=== PATIENT | female | born 1980 | race Caucasian/White ===

== ENCOUNTER 2016-06-30 08:29 | Day surgery (SDC) | payer BC ==
[~2016-06-30] VITALS: Ht 157.5 cm; Wt 74.8 kg
[~2016-06-30 08:29] MED LIST: LAMICTAL100 MG PO; PROBIOTIC1 EAC2 PO; RESCUE INHALER; WELLBUTRIN XL300 MG PO
[2016-06-30] MEDS ORDERED: VENTOLIN HFA18 GM IH (08:56)
[2016-06-30 08:59] VITALS: BP 107/63
[2016-06-30] MEDS ORDERED: NORCO 5/3251 TABLET PO (10:33)
[2016-06-30] MEDS ORDERED: MOTRIN600 MG PO (10:33)
[2016-06-30 11:27] VITALS: BP 109/51
[2016-06-30 12:06] VITALS: BP 110/70
== END 2016-06-30 12:13 | disposition home or self-care (01) ==
LOC: SDC 08:29
DX: N87.1 Moderate cervical dysplasia (principal); R87.810 Cervical high risk human papillomavirus (HPV) DNA test positive; F17.200 Nicotine dependence, unspecified, uncomplicated; Z80.0 Family history of malignant neoplasm of digestive organs; Z80.3 Family history of malignant neoplasm of breast; Z88.8 Allergy status to other drugs, medicaments and biological substances
CPT/HCPCS: 88305; 88307; 94640; J1100; J1885; J2250; J2405; J3010